=== PATIENT | male | born 1955 | race Hispanic/Latino ===

== ENCOUNTER 2019-10-10 12:22 | Emergency (ER) | payer MEDICARE, OTHER ==
[2019-10-11 10:26] LABS: SARS-CoV-2 MS2 Positive; SARS-CoV-2 N Gene Negative; SARS-CoV-2 S Gene Negative; SARS-CoV-2 orf1ab Negative
== END 2019-10-10 13:25 | disposition home or self-care (01) ==
LOC: ERS 12:22 → EDUNIT# 12:22 → ERS 13:25
DX: R05 Cough (principal); Z20.828 Contact with and (suspected) exposure to other viral communicable diseases; E11.9 Type 2 diabetes mellitus without complications; I10 Essential (primary) hypertension; I25.2 Old myocardial infarction
CPT/HCPCS: 87635; 99283; U0003

== ENCOUNTER 2020-11-13 12:16 | Inpatient (IN) | payer MEDICARE ==
[2020-11-13 13:36] LABS: #Eosinphils 0.1 thou/uL (0.0-0.7); #Lymphocytes 0.9 thou/uL (1.20-3.40); #Monocytes 0.7 thou/uL (0.11-0.59); #Neutrophils 9.1 thou/uL (1.40-6.50); %Basophils 0.1 % (0.0-1.0); %Eosinophils 0.6 % (0.0-10.0); %Monocytes 6.8 % (0.0-10.0); %Neutrophils 84.6 % (42.0-75.0); Hemoglobin 9.3 g/dL (14.0-18.0); Mean Corpuscular HGB CONC 35.3 g/dL (32.0-36.0); Mean Corpuscular Hemoglobin 31.7 pg (27.0-31.0); Mean Corpuscular Volume 89.8 fL (78.0-98.0); Mean Platelet Volume 6.1 fL (7.4-10.4); Platelet Count 260 thou/uL (130-400); RBC Distribution Width 12.8 % (11.5-14.5); Red Blood Cell (RBC) Count 2.94 mill/uL (4.70-6.10); White Blood Cell (WBC) Count 10.7 thou/uL (4.8-10.8)
[2020-11-13 13:55] LABS: ALT (SGPT) 14 U/L (8-55); AST (SGOT) 12 U/L (5-34); Albumin 3.3 g/dL (3.4-4.8); Alkaline Phosphatase 190 U/L (40-110); Anion Gap 14 mmol/L (10-20); BUN (Urea Nitrogen) 33 mg/dL (8.4-25.7); Bilirubin, Total 0.3 mg/dL (0.2-1.2); Calc. Creatinine Clearance 0 mL/min (70-130); Calcium 9.2 mg/dL (7.8-10.44); Carbon Dioxide 23 mmol/L (23-31); Chloride 99 mmol/L (98-107); Globulin 3.7 g/dL (2.4-3.5); Glucose 288 mg/dL (80-115); Potassium 4.9 mmol/L (3.5-5.1); Sodium 131 mmol/L (136-145)
[2020-11-13] MEDS ORDERED: Vancomycin 1 GM/200 ML BAG ONE (17:44)
[2020-11-13] MEDS ORDERED: Morphine 4 MG/ML VIAL ONE (17:44)
[2020-11-13] MEDS ORDERED: Ampicillin/Sulbactam 3 GM in Sodium Chloride 0.9% 100 ML IVPB SCH (18:00)
[2020-11-13] MEDS ORDERED: Ondansetron ODT 4 MG TAB PO PRN (18:42)
[2020-11-13] MEDS ORDERED: Ondansetron PF 4 MG/2 ML Vial IVP PRN (18:42)
[2020-11-13] MEDS ORDERED: Dextrose 50% Abboject 50 ML SYRINGE SLOW IVP PRN (19:20)
[2020-11-13] MEDS ORDERED: Dextrose 5% in Water 1,000 ML IV PRN (19:20)
[2020-11-13] MEDS ORDERED: Alogliptin 25 MG TAB PO SCH (21:30)
[2020-11-13] MEDS ORDERED: Pioglitazone HCl 15 MG TAB PO SCH (21:30)
[2020-11-13] MEDS ORDERED: Losartan 25 MG TAB PO SCH (21:30)
[2020-11-13] MEDS ORDERED: Atorvastatin Calcium 40 MG TAB PO SCH (21:30)
[2020-11-13] MEDS: Acetaminophen 325 MG TAB PO PRN (22:21)
[2020-11-13 23:02] VITALS: BMI 25.1
[2020-11-13] MEDS: Morphine 2 MG/ML VIAL SLOW IVP PRN (23:13)
[2020-11-13] MEDS ORDERED: Enoxaparin Sodium 30 MG/0.3 ML SYRINGE SC SCH (23:30)
[2020-11-14 06:46] LABS: Hemoglobin 8.7 g/dL (14.0-18.0); Hemoglobin A1c 6.5 % (4.0-6.0); Mean Corpuscular HGB CONC 33.8 g/dL (32.0-36.0); Mean Corpuscular Hemoglobin 30.7 pg (27.0-31.0); Mean Corpuscular Volume 90.7 fL (78.0-98.0); Mean Platelet Volume 6.4 fL (7.4-10.4); Platelet Count 253 thou/uL (130-400); RBC Distribution Width 12.8 % (11.5-14.5); Red Blood Cell (RBC) Count 2.82 mill/uL (4.70-6.10); White Blood Cell (WBC) Count 8.8 thou/uL (4.8-10.8)
[2020-11-14 07:03] LABS: Anion Gap 12 mmol/L (10-20); BUN (Urea Nitrogen) 41 mg/dL (8.4-25.7); Calc. Creatinine Clearance 33 mL/min (70-130); Calcium 9.2 mg/dL (7.8-10.44); Carbon Dioxide 23 mmol/L (23-31); Chloride 103 mmol/L (98-107); Glucose 203 mg/dL (80-115); Potassium 3.9 mmol/L (3.5-5.1); Sodium 134 mmol/L (136-145)
[2020-11-14 08:14] LABS: Band 1 % (5-11); Eosinophils 2 % (0-10); Lymphocytes 13 % (21-51); MDiff Complete? YES; Monocytes 9 % (0-10); Neutrophil 74 % (42-75); RBC Morphology Normal
[2020-11-14] MEDS: Acetaminophen 325 MG TAB PO PRN (09:01)
[2020-11-14] MEDS: Losartan 25 MG TAB PO SCH (09:03)
[2020-11-14] MEDS: Pioglitazone HCl 15 MG TAB PO SCH (09:03)
[2020-11-14] MEDS: Alogliptin 25 MG TAB PO SCH (09:03)
[2020-11-14] MEDS: Atorvastatin Calcium 40 MG TAB PO SCH (09:06)
[2020-11-14] MEDS: cefTRIAXone\\ROCEPHIN 1 GM in Sodium Chloride 0.9% 100 ML IVPB SCH (09:06)
[2020-11-14 11:14] LABS: SARS-CoV-2 PCR by NAA Not Detected (NotDetected)
[2020-11-14] MEDS: Vancomycin HCl 750 MG in Sodium Chloride 0.9% 250 ML 250 ML IVPB SCH ×2 (17:32→21:12)
[2020-11-14] MEDS ORDERED: Enoxaparin Sodium 30 MG/0.3 ML SYRINGE SC SCH (21:00)
[2020-11-14] MEDS: Morphine 2 MG/ML VIAL SLOW IVP PRN (21:06)
[2020-11-15] MEDS: Morphine 2 MG/ML VIAL SLOW IVP PRN ×2 (00:58→22:26)
[2020-11-15] MEDS: Acetaminophen 325 MG TAB PO PRN ×2 (01:02→04:52)
[2020-11-15 07:01] LABS: Anion Gap 12 mmol/L (10-20); BUN (Urea Nitrogen) 46 mg/dL (8.4-25.7); Calc. Creatinine Clearance 32 mL/min (70-130); Calcium 9.2 mg/dL (7.8-10.44); Carbon Dioxide 22 mmol/L (23-31); Chloride 107 mmol/L (98-107); Glucose 178 mg/dL (80-115); Potassium 4.6 mmol/L (3.5-5.1); Sodium 136 mmol/L (136-145)
[2020-11-15] MEDS: Pioglitazone HCl 15 MG TAB PO SCH (09:23)
[2020-11-15] MEDS: Losartan 25 MG TAB PO SCH (09:24)
[2020-11-15] MEDS: Atorvastatin Calcium 40 MG TAB PO SCH (09:24)
[2020-11-15] MEDS: cefTRIAXone\\ROCEPHIN 1 GM in Sodium Chloride 0.9% 100 ML IVPB SCH (09:25)
[2020-11-15] MEDS: Alogliptin 25 MG TAB PO SCH (09:25)
[2020-11-15 13:11] LABS: CRP (Inflammatory) 3.83 mg/dL (= or < 0.5)
[2020-11-15] MEDS: Cefepime 2 GM in Sodium Chloride 0.9% 100 ML IVPB SCH (13:29)
[2020-11-15 13:36] LABS: Ferritin 884.66 ng/mL (22-322)
[2020-11-15] MEDS ORDERED: Neomycin-Polymyxin 1 ML AMP ONE ×2 (16:29→17:29)
[2020-11-15] MEDS ORDERED: Lidocaine 2% PF 5 ML VIAL ONE (16:29)
[2020-11-15] MEDS ORDERED: Bacitracin Zinc Ointment 30 gm TUBE ONE (16:29)
[2020-11-15] MEDS ORDERED: Bupivacaine PF 0.5% 30 ML VIAL ONE (16:29)
[2020-11-15] MEDS ORDERED: Fentanyl 100 MCG/2 ML VIAL ONE (16:40)
[2020-11-15] MEDS ORDERED: PHENYLEPHRINE-NS 100 MCG/ML 10 ML SYRINGE ONE (17:09)
[2020-11-15] MEDS ORDERED: Ondansetron PF 4 MG/2 ML Vial ONE (17:09)
[2020-11-15] MEDS ORDERED: Dexamethasone 20 MG/5 ML VIAL ONE (17:09)
[2020-11-15] MEDS ORDERED: Lidocaine 1% PF 5 ML VIAL ONE (17:09)
[2020-11-15] MEDS ORDERED: PROPOFOL 200 MG/20 ML VIAL ONE (17:09)
[2020-11-15] MEDS: Vancomycin HCl 750 MG in Sodium Chloride 0.9% 250 ML 250 ML IVPB SCH (19:30)
[2020-11-15] MEDS ORDERED: Atorvastatin Calcium 40 MG TAB PO SCH (22:15)
[2020-11-16] MEDS ORDERED: Morphine 2 MG/ML VIAL SLOW IVP SCH (00:15)
[2020-11-16] MEDS: Acetaminophen 325 MG TAB PO PRN ×2 (00:22→05:19)
[2020-11-16] MEDS: Cefepime 2 GM in Sodium Chloride 0.9% 100 ML IVPB SCH ×2 (00:23→11:48)
[2020-11-16] MEDS: traMADol HCl 50 MG TAB PO PRN ×3 (02:27→22:43)
[2020-11-16] MEDS: Morphine 2 MG/ML VIAL SLOW IVP PRN (06:37)
[2020-11-16 07:21] LABS: #Lymphocytes 0.5 thou/uL (1.20-3.40); #Monocytes 0.4 thou/uL (0.11-0.59); #Neutrophils 7.6 thou/uL (1.40-6.50); %Basophils 0.3 % (0.0-1.0); %Eosinophils 0.1 % (0.0-10.0); %Lymphocytes 6.1 % (21.0-51.0); %Monocytes 4.9 % (0.0-10.0); %Neutrophils 88.5 % (42.0-75.0); Hemoglobin 8.4 g/dL (14.0-18.0); Mean Corpuscular HGB CONC 35.4 g/dL (32.0-36.0); Mean Corpuscular Hemoglobin 32.2 pg (27.0-31.0); Mean Corpuscular Volume 90.9 fL (78.0-98.0); Platelet Count 241 thou/uL (130-400); RBC Distribution Width 12.5 % (11.5-14.5); White Blood Cell (WBC) Count 8.6 thou/uL (4.8-10.8)
[2020-11-16 07:38] LABS: Anion Gap 13 mmol/L (10-20); BUN (Urea Nitrogen) 47 mg/dL (8.4-25.7); Calc. Creatinine Clearance 33 mL/min (70-130); Calcium 8.7 mg/dL (7.8-10.44); Carbon Dioxide 20 mmol/L (23-31); Chloride 107 mmol/L (98-107); Glucose 220 mg/dL (80-115); Potassium 4.8 mmol/L (3.5-5.1); Sodium 135 mmol/L (136-145)
[2020-11-16] MEDS: Pioglitazone HCl 15 MG TAB PO SCH (09:42)
[2020-11-16] MEDS: Losartan 25 MG TAB PO SCH (09:42)
[2020-11-16] MEDS: Alogliptin 25 MG TAB PO SCH (09:47)
[2020-11-16] MEDS ORDERED: Acetaminophen 500 MG TAB PO PRN (11:20)
[2020-11-16] MEDS: HYDROcodone/Acetaminophen 5/325 mg Tablet PO PRN ×2 (14:29→20:15)
[2020-11-16] MEDS ORDERED: Polyethylene Glycol 3350 17 GM Packet PO PRN (17:06)
[2020-11-16 17:32] LABS: Vancomycin, Trough 12.5 ug/mL
[2020-11-16] MEDS ORDERED: Vancomycin 1 GM in Premix Bag 1 BAG IVPB SCH (18:00)
[2020-11-16] MEDS: HumaLOG 300 UNITS/3 ML VIAL SC PRN (18:10)
[2020-11-16] MEDS: Senokot S 8.6-50 MG TAB PO SCH (20:12)
[2020-11-16] MEDS: Atorvastatin Calcium 40 MG TAB PO SCH (20:12)
[2020-11-17] MEDS: Cefepime 2 GM in Sodium Chloride 0.9% 100 ML IVPB SCH ×2 (00:07→11:39)
[2020-11-17] MEDS: HYDROcodone/Acetaminophen 5/325 mg Tablet PO PRN ×3 (00:07→21:00)
[2020-11-17] MEDS: traMADol HCl 50 MG TAB PO PRN (05:37)
[2020-11-17] MEDS: Senokot S 8.6-50 MG TAB PO SCH ×2 (10:03→21:00)
[2020-11-17] MEDS: Losartan 25 MG TAB PO SCH (10:04)
[2020-11-17] MEDS: Alogliptin 25 MG TAB PO SCH (10:04)
[2020-11-17] MEDS: Pioglitazone HCl 15 MG TAB PO SCH (10:05)
[2020-11-17] MEDS: HumaLOG 300 UNITS/3 ML VIAL SC PRN (18:24)
[2020-11-17] MEDS: Atorvastatin Calcium 40 MG TAB PO SCH (20:59)
[2020-11-18] MEDS: Cefepime 2 GM in Sodium Chloride 0.9% 100 ML IVPB SCH ×2 (00:04→11:52)
[2020-11-18] MEDS: traMADol HCl 50 MG TAB PO PRN (00:06)
[2020-11-18] MEDS: Pioglitazone HCl 15 MG TAB PO SCH (08:40)
[2020-11-18] MEDS: Losartan 25 MG TAB PO SCH (08:41)
[2020-11-18] MEDS: Alogliptin 25 MG TAB PO SCH (08:42)
[2020-11-18] MEDS: Senokot S 8.6-50 MG TAB PO SCH ×2 (08:42→19:48)
[2020-11-18] MEDS: HYDROcodone/Acetaminophen 5/325 mg Tablet PO PRN ×2 (08:53→19:47)
[2020-11-18] MEDS: Atorvastatin Calcium 40 MG TAB PO SCH (19:48)
[2020-11-19] MEDS: Cefepime 2 GM in Sodium Chloride 0.9% 100 ML IVPB SCH ×2 (00:02→12:13)
[2020-11-19] MEDS: traMADol HCl 50 MG TAB PO PRN (00:04)
[2020-11-19] MEDS: Vancomycin 1 GM in Premix Bag 1 BAG IVPB SCH (08:49)
[2020-11-19] MEDS: Alogliptin 25 MG TAB PO SCH (08:50)
[2020-11-19] MEDS: Pioglitazone HCl 15 MG TAB PO SCH (08:50)
[2020-11-19] MEDS: Losartan 25 MG TAB PO SCH (08:50)
[2020-11-19] MEDS: Senokot S 8.6-50 MG TAB PO SCH ×2 (08:50→20:24)
[2020-11-19] MEDS: HYDROcodone/Acetaminophen 5/325 mg Tablet PO PRN (20:24)
[2020-11-19] MEDS: Atorvastatin Calcium 40 MG TAB PO SCH (20:24)
[2020-11-20] MEDS: Cefepime 2 GM in Sodium Chloride 0.9% 100 ML IVPB SCH (01:16)
[2020-11-20] MEDS: Acetaminophen 325 MG TAB PO PRN ×3 (01:21→17:42)
[2020-11-20] MEDS: traMADol HCl 50 MG TAB PO PRN ×2 (01:21→20:52)
[2020-11-20] MEDS: Losartan 25 MG TAB PO SCH (08:02)
[2020-11-20] MEDS: Alogliptin 25 MG TAB PO SCH (08:03)
[2020-11-20] MEDS: Senokot S 8.6-50 MG TAB PO SCH ×2 (08:04→20:52)
[2020-11-20] MEDS: Pioglitazone HCl 15 MG TAB PO SCH (10:03)
[2020-11-20] MEDS: Vancomycin 1 GM in Premix Bag 1 BAG IVPB SCH (10:04)
[2020-11-20] MEDS ORDERED: Cefepime 2 GM in Sodium Chloride 0.9% 100 ML IVPB SCH (11:45)
[2020-11-20 12:29] LABS: #Eosinphils 0.1 thou/uL (0.0-0.7); #Lymphocytes 0.9 thou/uL (1.20-3.40); #Monocytes 0.9 thou/uL (0.11-0.59); #Neutrophils 7.1 thou/uL (1.40-6.50); %Basophils 0.1 % (0.0-1.0); %Eosinophils 1.1 % (0.0-10.0); %Lymphocytes 9.8 % (21.0-51.0); %Monocytes 9.8 % (0.0-10.0); %Neutrophils 79.2 % (42.0-75.0); Hemoglobin 8.9 g/dL (14.0-18.0); Mean Corpuscular HGB CONC 35.4 g/dL (32.0-36.0); Mean Corpuscular Hemoglobin 31.7 pg (27.0-31.0); Mean Corpuscular Volume 89.5 fL (78.0-98.0); Mean Platelet Volume 5.9 fL (7.4-10.4); Platelet Count 202 thou/uL (130-400); RBC Distribution Width 12.8 % (11.5-14.5); Red Blood Cell (RBC) Count 2.82 mill/uL (4.70-6.10)
[2020-11-20 13:13] LABS: Anion Gap 11 mmol/L (10-20); BUN (Urea Nitrogen) 48 mg/dL (8.4-25.7); Calc. Creatinine Clearance 37 mL/min (70-130); Calcium 9.3 mg/dL (7.8-10.44); Carbon Dioxide 24 mmol/L (23-31); Chloride 103 mmol/L (98-107); Glucose 125 mg/dL (80-115); Potassium 4.4 mmol/L (3.5-5.1); Sodium 134 mmol/L (136-145)
[2020-11-20] MEDS: Cefepime 1 GM in Sodium Chloride 0.9% 100 ML IVPB SCH (14:55)
[2020-11-20] MEDS: Atorvastatin Calcium 40 MG TAB PO SCH (20:52)
[2020-11-21] MEDS: Acetaminophen 325 MG TAB PO PRN ×2 (00:04→08:09)
[2020-11-21] MEDS: Cefepime 1 GM in Sodium Chloride 0.9% 100 ML IVPB SCH ×2 (00:05→13:55)
[2020-11-21] MEDS: Losartan 25 MG TAB PO SCH (08:08)
[2020-11-21] MEDS: Senokot S 8.6-50 MG TAB PO SCH (08:09)
[2020-11-21] MEDS: Alogliptin 25 MG TAB PO SCH (08:09)
[2020-11-21] MEDS: Vancomycin 1 GM in Premix Bag 1 BAG IVPB SCH (08:09)
[2020-11-21 08:58] LABS: Vancomycin, Trough 17.5 ug/mL
[2020-11-21] MEDS: traMADol HCl 50 MG TAB PO PRN (09:51)
[2020-11-21] MEDS: Pioglitazone HCl 15 MG TAB PO SCH (10:23)
[2020-11-21 17:51] VITALS: BP 149/71; TEMP 98.2
== END 2020-11-21 17:22 | disposition home or self-care (01) | DRG 257 ==
LOC: ERS 12:16 → T4-A 17:36 → OBSVTOIN 11-15 15:19
PROVIDERS: ADMIT Family Medicine; ATTEND Family Medicine
PROC: 0Y6P0Z0 Detachment at Right 1st Toe, Complete, Open Approach (ICD-10-PCS; principal; 2020-11-15)
DX: E11.52 Type 2 diabetes mellitus with diabetic peripheral angiopathy with gangrene (principal); Z20.822 Contact with and (suspected) exposure to COVID-19; I12.9 Hypertensive chronic kidney disease with stage 1 through stage 4 chronic kidney disease, or unspecified chronic kidney disease; E11.22 Type 2 diabetes mellitus with diabetic chronic kidney disease; N18.9 Chronic kidney disease, unspecified; D63.1 Anemia in chronic kidney disease; I25.10 Atherosclerotic heart disease of native coronary artery without angina pectoris; H54.7 Unspecified visual loss; E78.00 Pure hypercholesterolemia, unspecified; I25.2 Old myocardial infarction; Z79.84 Long term (current) use of oral hypoglycemic drugs; Z79.899 Other long term (current) drug therapy
CPT/HCPCS: 36415; 36416; 80048; 80053; 80202; 82607; 82728; 82746; 83036; 83540; 83550; 83605; 85007; 85025; 85027; 85652; 86140; 87040; 87070; 87077; 87186; 87205; 93923; 96365; 96366; 96367; 96372; 96375; 96376; G0378; J0295; J0692; J0696; J1100; J1650; J1815; J2001; J2270; J2405; J2704; J3010; J3370; J3490; J7050; S0020; U0003; U0005

== ENCOUNTER 2021-02-02 05:55 | Day surgery (SDC) | payer MEDICARE ==
[2021-02-01 14:15] VITALS: BMI 26.2
[2021-02-02] MEDS ORDERED: cefTRIAXone\\ROCEPHIN 2 GM VIAL ONE (06:29)
[2021-02-02] MEDS ORDERED: Sodium Chloride 0.9% 100 ML ONE (06:29)
[2021-02-02] MEDS ORDERED: Bupivacaine PF 0.5% 30 ML VIAL ONE (06:34)
[2021-02-02] MEDS ORDERED: Lidocaine 2% PF 5 ML VIAL ONE ×3 (06:34→07:24)
[2021-02-02] MEDS ORDERED: Bacitracin Zinc Ointment 30 gm TUBE ONE (06:34)
[2021-02-02] MEDS ORDERED: Fentanyl 100 MCG/2 ML VIAL ONE (07:00)
[2021-02-02] MEDS ORDERED: Midazolam HCl 2 mg/2 ml Vial ONE (07:00)
[2021-02-02] MEDS ORDERED: Ketamine 50 MG/ML (10ML VIAL) ONE (07:01)
[2021-02-02] MEDS ORDERED: PROPOFOL 200 MG/20 ML VIAL ONE (07:17)
[2021-02-02] MEDS ORDERED: Neomycin-Polymyxin 1 ML AMP ONE (07:23)
== END 2021-02-02 09:00 | disposition home or self-care (01) ==
LOC: SDC 05:55
PROVIDERS: ATTEND Podiatrist
PROC: 0QBN0ZZ Excision of Right Metatarsal, Open Approach (ICD-10-PCS; principal; 2021-02-02)
DX: E11.69 Type 2 diabetes mellitus with other specified complication (principal); M86.8X7 Other osteomyelitis, ankle and foot; I12.9 Hypertensive chronic kidney disease with stage 1 through stage 4 chronic kidney disease, or unspecified chronic kidney disease; E11.22 Type 2 diabetes mellitus with diabetic chronic kidney disease; N18.9 Chronic kidney disease, unspecified; E78.5 Hyperlipidemia, unspecified; K21.9 Gastro-esophageal reflux disease without esophagitis; H54.8 Legal blindness, as defined in USA; H91.90 Unspecified hearing loss, unspecified ear; I25.2 Old myocardial infarction; E78.00 Pure hypercholesterolemia, unspecified; Z79.84 Long term (current) use of oral hypoglycemic drugs; Z79.899 Other long term (current) drug therapy; Z89.411 Acquired absence of right great toe
CPT/HCPCS: 36416; 87070; 87077; 87186; 87205; 93005; 93010; J0696; J2001; J2250; J2704; J3010; J3490; S0020